=== PATIENT | male | born 1970 | race Caucasian/White ===

== ENCOUNTER 2020-12-26 08:46 | Emergency (ER) | payer MEDICAID, SELFPAY ==
--- NOTE | 2020-12-26 08:48 | CT_ITS ---
WS: [id number] CT CERVICAL TRAUMA TECHNIQUE: Noncontrast CT of the cervical spine with coronal and sagittal reformatted images. CLINICAL INFORMATION: trauma COMPARISON: None. DLP: 860.[address] scans at [facility] use at least one of these dose optimization techniques: automated e xposure control; mA and/or kV adjustment per patient size (includes targeted exams where dose is matc hed to clinical indication); or iterative reconstruction. FINDINGS: Straightening of the normal cervical lordosis. Mild spondylitic changes. Anterior hypertrophic change s at C5-C6. Mild disc bulging C5-C6 and C6-C7. Mild central canal stenosis C6-7 with a broad-based ce ntral protrusion. Normal craniocervical junction. Normal C1-C2 articulation. Dens is normal in appear ance. Normal occipital condyles. Normal C1 ring. No evidence of acute fracture or dislocation. Normal prevertebral soft tissues. Mastoids air cells are well aerated. CT/CT cervical spin wo con* [id number] IMPRESSION: No evidence of acute fracture or dislocation.
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
[2020-12-26] MEDS: iohexol 300 mg/mL 100 mL Btl IV (08:59)
[2020-12-26 09:18] VITALS: BP 156/99; PULSE 90; RESP 19; TEMP 36.7; O2SAT 97; BMI 27.0
[2020-12-26 09:21] LABS: Basophils # 0.1 10^3/uL (0.0-0.1); Basophils % 1.1 %; Eosinophils # 0.2 10^3/uL (0.0-0.8); Eosinophils % 4.7 %; Hematocrit 39.8 % (42.0-52.0); Hemoglobin 14.1 g/dL (11.7-16.6); Lymphocytes # 1.1 10^3/uL (0.8-4.8); Lymphocytes % 24.9 %; Mean Corpuscular HGB Conc 35.4 g/dL (30.0-36.0); Mean Corpuscular Hemoglobin 31.3 pg (28.0-34.0); Mean Corpuscular Volume 88.2 fl (80-94); Mean Platelet Volume 10.2 fL (7.4-10.4); Monocytes # 0.4 10^3/uL (0.2-0.9); Monocytes % 8.5 %; Neutrophils # 2.67 10^3/uL (1.8-7.7); Neutrophils % 60.1 %; Nucleated Red Blood Cells % 0 %; Platelet Count 223 10^3/cmm (130-400); Red Blood Count 4.51 10^6/uL (4.1-5.3); Red Cell Distribution Width 11.5 % (12.1-15.1); White Blood Count 4.5 10^3/uL (4.0-10.0)
[2020-12-26 09:39] LABS: Alanine Aminotransferase 19 U/L (0-41); Albumin Level 3.8 g/dL (3.5-5.2); Alkaline Phosphatase 69 IU/L (40-130); Anion Gap 13.5 (5-19); Aspartate Amino Transferase 15 U/L (0-40); Blood Urea Nitrogen 13 mg/dL (6-20); Calcium 7.8 mg/dL (8.5-10.5); Carbon Dioxide 22 mmol/L (22-29); Chloride 104 mmol/L (98-107); Globulin 1.9 g/dL (1.3-4.6); Glomerular Filtration Rate 89.7 mL/min (90-130); Glucose 114 mg/dL (65-115); Osmolality Calculated 283 mOsm/kg (285-295); Potassium 3.5 mmol/L (3.5-5.1); Sodium 136 mmol/L (136-145); Total Bilirubin 0.4 mg/dL (0.15-1.2); Total Protein 5.7 g/dL (6.6-8.7)
[2020-12-26 09:44] VITALS: BP 166/109; PULSE 85; O2SAT 97
[2020-12-26 09:57] LABS: Add Urine Microscopic? NO; Charge for UA Resulting for Rev
[2020-12-26 10:11] LABS: Bilirubin Urine Neg (Negative); Blood Urine Neg (Negative); Glucose Urine UA Norm (Normal); Ketones Urine Negative (Negative); Leukocyte Esterase Urine Negative (Negative); Nitrate Urine Negative (Negative); Protein Urine Neg (Negative); Urine Appearance Clear (CLEAR); Urine Color Yellow (Yellow); Urobilinogen Urine Norm (Negative); pH Urine 5 (5-7)
[2020-12-26 10:12] VITALS: BP 151/94; PULSE 80; RESP 18; O2SAT 96
[2020-12-26] MEDS: sodium chloride 0.9% 1,000 ML 999 ML IV (10:12)
[2020-12-26] MEDS: ketorolac 30 mg/mL INJ IVP (10:12)
[2020-12-26 11:09] VITALS: BP 155/99; PULSE 77; RESP 14; O2SAT 97
[2020-12-26] MEDS: tetracaine 0.5% Op Soln 4 mL Btl 1 DROP EYE-BOTH (11:20)
[2020-12-26] MEDS: fluorescein 1 mg Strip EYE-BOTH (11:20)
[2020-12-26] MEDS: HYDROcodone-acetaminophen 5-325 mg Tablet 2 TAB PO (11:45)
== END 2020-12-26 11:47 | disposition home or self-care (01) ==
PROVIDERS: Emergency Provider Family Medicine; PCP Internal Medicine
DX: S00.83XA Contusion of other part of head, initial encounter (principal); V89.2XXA Person injured in unspecified motor-vehicle accident, traffic, initial encounter
CPT/HCPCS: 70450; 71260; 72125; 74177; 80053; 81003; 85025; 96361; 96374; 99283; J1885; J7030; Q9967

== ENCOUNTER → 2022-01-13 16:20 | Outpatient (BNVA) | payer MEDICAID, SELFPAY | PROVIDERS: PCP Family Medicine; Visit Provider Family Medicine | DX: I10 Essential (primary) hypertension (principal) | CPT/HCPCS: 80053; 80061; 83721; 84153; 84443; 85025; 86803; 87806 ==

== ENCOUNTER → 2022-08-29 10:49 | Outpatient (BNVA) | payer MEDICAID, SELFPAY | PROVIDERS: PCP Family Medicine; Referring Provider Family Medicine; Visit Provider Nurse Practitioner Family | DX: M16.11 Unilateral primary osteoarthritis, right hip (principal) | CPT/HCPCS: 73502 ==

== ENCOUNTER 2023-07-07 15:10 | Emergency (ER) | payer OTHER, SELFPAY ==
[2023-07-07 15:19] VITALS: BP 191/91; PULSE 84; RESP 16; TEMP 36.5; O2SAT 97; BMI 28.8
--- NOTE | 2023-07-07 16:03 | XRR_ITS ---
PROCEDURE INFORMATION: Exam: XR Left Hand Exam date and time: 07/07/2023 4:09 PM Age: 53 years old Clinical indication: Injury or trauma; Other: Smashed between 2 objects at work; Work related; Blunt trauma (contusions or hematomas); Injury details: PT presents with left hand injury. Patient states hand was smashed between two objects at work. Patient states that he cannot move pinky finger. Patient has small laceration to top of hand. Patient last tetnus shot within the last 2 years. Patent airway, unlabored respirations, and appropriate color. TECHNIQUE: Imaging protocol: Radiologic exam of the left hand. Views: 3 or more views. COMPARISON: No relevant prior studies available. FINDINGS: Bones/joints: Acute displaced fracture of the proximal phalanx small finger. No gross evidence of intra-articular step-off. Chronic appearing 1 cm ossicle adjacent to the distal pole of the scaphoid. Correlation with point tenderness and CT may be helpful for further detail if there is concern for acute trauma in this region. Radiocarpal articulation and carpal rows are otherwise grossly intact. Soft tissues: Soft tissue edema/laceration of the ulnar aspect of the hand in the region of the small finger/4th webspace raising the question of open fracture. XR/XR hand LT min 3V* [id number] IMPRESSION: 1. Acute displaced fracture of the proximal phalanx small finger, possibly open. 2. Chronic appearing 1 cm ossicle adjacent to the distal pole of the scaphoid. Correlation with point tenderness and CT may be helpful for further detail if there is concern for acute trauma in this region.
--- NOTE | 2023-07-07 16:20 | ED_ITS ---
HPI - Extremity Injury (Upper) General: Chief Complaint: Extremity Injury, Upper Stated Complaint: smashed left hand Time Seen by Provider: 07/07/23 16:17 Source: patient Mode of arrival: ambulatory Limitations: no limitations History of Present Illness: Patient is a 53-year-old male presents to ED today for evaluation of left hand injury that he sustained just prior to arrival while at work and the hand got smashed between some metal component of a tractor bucket. Patient's tetanus is up-to-date. His main complaint is pain to the left fifth finger. MD complaint: injury to: left, hand and finger Onset (ago): hour(s) Other Extremity Injury: Left: hand Other injuries: none Place: home Severity: moderate Relieving factors: none Exacerbating factors: movement of extremity Context: direct blow and crush Associated symptoms: Reports no associated symptoms Review of Systems Musc: Reports: extremity pain (L hand) Skin/Breast: Reports: other (abrasions dorsal L hand) Neuro: Denies: numbness in extremities or sensory changes PFSH ED PFSH: Family History Father Hypertension Mother CAD (coronary artery disease) Social History Smoking and tobacco/nicotine status: never used tobacco/nicotine Second hand smoke exposure: No Alcohol intake: current Alcohol intake frequency: few times a week Substance/Drug Use: never Adopted: No Caregiver/support person: No Lives independently: No Household members: spouse Marital status: Life Partner Number of children: 6 service: Yes Current occupational status: employed Current occupational exposures/hazards: No Do you think of yourself as: Straight/Heterosexual Current gender identity: Male Physical Exam Const: COMMON NORMALS: no acute distress, average body habitus, no limitations, healthy appearing, alert and well nourished GENERAL APPEARANCE: cooperative ORIENTATION/CONSCIOUSNESS: Yes awake, Yes oriented to person, Yes oriented to place and Yes oriented to time Extremity: COMMON NORMALS: capillary refill normal GENERAL: Yes normal exam except as noted LEFT UPPER EXTREMITY: Yes hand & digits (abrasions dorsal L 4-5 CMP regions; one small flap not amendable to repair) Left hand and digits: Yes palpation (TTP L 5th finger) and Yes neurovascular exam (normal) Neuro: COMMON NORMALS: moves all extremities, no focal motor deficits and no sensory deficits noted SENSORIUM/ORIENTATION: Yes alert, Yes oriented to person, Yes oriented to place and Yes oriented to time Course Vital Signs: Vital signs: Vital Signs Temperature 97.7 F 07/07/23 15:19 Pulse Rate 84 07/07/23 15:19 Respiratory Rate 16 07/07/23 15:19 Blood Pressure 191/91 07/07/23 15:19 Pulse Oximetry 97 07/07/23 15:19 Oxygen Delivery Me thod Room Air 07/07/23 15:19 MDM - Extremity Injury (Upper) Medical Decision Making Patient has a fracture of his fifth proximal phalanx. Abrasions to the dorsum of his hand were copiously irrigated and dressed. Finger will be splinted. His tetanus is up-to-date. Will go ahead and place him on prophylactic antibiotics and give him pain medications. He will follow-up with orthopedics. Medical Records I reviewed the patient's medical records. XR interpretation done by ED provider, pending radiology final review Discharge Plan Discharge Patient Disposition: Home Clinical Impression: Closed fracture of proximal phalanx of little finger Qualifiers: Encounter type: initial encounter Fracture alignment: nondisplaced Laterality: left Qualified Code(s): S62.647A - Nondisplaced fracture of proximal phalanx of left little finger, initial encounter for closed fracture Condition: Stable Prescriptions: New hydrocodone-acetaminophen 5-325 mg tablet 1 tab PO Q6H PRN (Reason: pain) Qty: 14 0RF cephalexin 500 mg capsule 500 mg PO Q6H 7 Days Qty: 28 0RF No Action diazepam 10 mg tablet 10 mg PO BID PRN (Reason: anxiety) Qty: 2 0RF amlodipine 10 mg tablet 10 mg PO DAILY Qty: 90 3RF atorvastatin 40 mg tablet 40 mg PO DAILY Qty: 90 3RF lisinopril 40 mg tablet 40 mg PO DAILY Qty: 90 3RF zolpidem [Ambien] 10 mg tablet 10 mg PO .at bedtime Qty: 30 5RF melatonin 10 mg Tablet 80 mg PO BEDTIME diclofenac sodium 75 mg tablet,delayed release (DR/EC) 75 mg PO Q12H PRN (Reason: pain) Qty: 20 0RF tizanidine 4 mg capsule 4 mg PO Q6H PRN (Reason: muscle spasticity) Qty: 20 0RF Discharge Orders: Discharge ED (Routine); Ordered 07/07/23 Ordered By: Manjula Bethea Referrals: Eagle Castellanos DO [Primary Care Provider] - Patient Instructions: Fractures - Phalanx (Finger), Finger Fracture (ED), Opioid Safety, Pain Management Activity Restrictions/Additional Instructions: As we discussed keep your abrasions clean with warm soapy water and monitor for signs of infection such as redness, increased swelling, purulent drainage, streaking up your hand or arm. Please seek medical reevaluation if these occur. You need to stay in your splint until you follow-up with orthopedics. Please fill your antibiotics and pain medications today and start your antibiotics immediately. Your pain medications you may use sparingly for severe pain. Case management should reach out to you shortly to help set you up with your follow- up orthopedic appointment. Coding Level of Care Code ED Power Line Installer And Repairer for Bentley Joyce
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
== END 2023-07-07 17:05 | disposition home or self-care (01) ==
PROVIDERS: Emergency Provider Physician Assistant; PCP Family Medicine
DX: S62.647A Nondisplaced fracture of proximal phalanx of left little finger, initial encounter for closed fracture (principal); W30.89XA Contact with other specified agricultural machinery, initial encounter
CPT/HCPCS: 73130; 99283

== ENCOUNTER → 2023-07-10 13:04 | Outpatient (BNVA) | payer OTHER, SELFPAY | PROVIDERS: PCP Family Medicine; Visit Provider Student in an Organized Health Care Education/Training Program | DX: S62.647A Nondisplaced fracture of proximal phalanx of left little finger, initial encounter for closed fracture (principal); W23.0XXA Caught, crushed, jammed, or pinched between moving objects, initial encounter | CPT/HCPCS: 73130 ==

== ENCOUNTER 2023-07-16 09:40 | Day surgery (SDC) | payer OTHER, SELFPAY ==
[2023-07-16] VITALS (9 sets, daily range): BP systolic 129–152; BP diastolic 76–88; PULSE 75–98; RESP 12–22; TEMP 36.6–37.5; O2SAT 95–98; BMI 28.8
[2023-07-16] MEDS: acetaminophen 1,000 MG/100 ML PIGGYBACK 400 MG IV (10:19)
[2023-07-16] MEDS: sodium chloride 0.9% 1,000 ML 30 ML IV (10:19)
[2023-07-16] MEDS: ketorolac 30 mg/mL INJ IVP (10:19)
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
--- NOTE | 2023-07-16 12:53 | W.PM.OPSUD ---
Surgery/Procedure H&P Update DATE OF PROCEDURE: July 16, 2023 DATE H&P PERFORMED: 07/10/23 H&P UPDATE INFORMATION: I have reviewed H&P completed within last 30 days, I have examined patient prior to procedure and No changes to prior documentation PREOP DIAGNOSIS: Left small finger proximal phalanx fracture PRIMARY INDICATION FOR PROCEDURE: Left small finger proximal phalanx fracture PLANNED PROCEDURE: Operation Date: 07/16/23 11:20 Proposed Procedures p Left small finger proximal phalanx closed reduction percutaneous pinning versus open reduction internal fixation 58035(Left) - Wallace Maravilla DO
[2023-07-16] MEDS: ceFAZolin 2,000 MG in sodium chloride 0.9% (plus) 50 ML 100 MG IV (12:59)
[2023-07-16] MEDS: lidocaine 2% INJ 20 mL INJECTION (13:42)
[2023-07-16] MEDS: ROPivacaine 0.5% SDV 30 mL 150 MG INJECTION (13:42)
--- NOTE | 2023-07-16 14:03 | P.BOP_ITS ---
Date of Procedure: [07/16/2023] Surgeon: Wallace Maravilla DO Cold Strip Feeder(s): JUAN Max Procedure(s) performed: . Left small finger closed reduction percutaneous pinning proximal phalanx fracture Left small finger I&D (2 cm x 1 cm x 0.25 cm Findings of the procedure(s): Patient found to have left small finger oblique fracture at the proximal phalanx. Patient did have a crush injury more proximal to the MP joint this had poor tissue edges and as a result just to make sure there was no communication of the fracture site I went ahead and opened this up there did not appear to be any joint involvement or communication to the fracture site but I went ahead and performed a thorough I&D of the small wound area over the dorsal aspect of the MP joint did not appear to have any communication with the fracture site as result ID performed and then subsequently closed reduced and pinned to the left small finger under x-ray guidance. Just for infection prophylaxis will place patient postoperatively on antibiotics as well as his pain control be placed in an ulnar gutter and follow- up in 2 weeks. Estimated blood loss: 5 mL Specimen(s) removed: None Post-operative diagnosis: Left small finger proximal phalanx fracture and dorsal hand laceration
--- NOTE | 2023-07-16 14:05 | P.OP_ITS ---
Operative Report Date of procedure: July 16, 2023 Pre-op diagnosis: Left small finger proximal fracture, Left dorsal hand abrasion Post-op diagnosis: Same Procedure done: Left small finger closed reduction percutaneous pinning proximal phalanx fracture Left small finger I&D (2 cm x 1 cm x 0.25 cm) Implants: 2 x 0.45 K wire Surgeon: Wallace Maravilla DO Anesthesia: MAC and Local Estimated blood loss: 5mL 43min IV fluids: 850mL Complications: none Findings: See operative report narrative Condition: stable Disposition: same day Brief History: Patient was seen and examined in the outpatient setting after sustaining a fracture of the left small finger proximal phalanx. There was also an abrasion over the dorsal aspect of the hand. Did not appear to have any communication with the joint patient been on antibiotics. We talked about treatment options nonoperative intervention. Given there was subtle rotational deformity as well as shortening and fracture displacement we talked about treatment options for his nonoperative and operative invention. At this point in time patient elects proceed with surgical intervention. Understands ins and outs procedure risk benefits complication alternatives of surgery and through shared decision-making proceed with surgical intervention. All questions answered at this time. Procedure: Patient was seen evaluate in the preoperative holding area. Consent was reviewed and signed with patient. Correct extremity was then subsequently marked. Patient was then seen evaluated by anesthesia was cleared for surgery was taken back to the operative suite patient was then kept on [facility] armboard applied to left upper extremity. Patient a nonsterile tourniquet applied to the left upper arm underwent anesthesia per the anesthesia department appropriate anesthetized nonsterile tourniquet applied left upper arm and the left upper extremities then prepped and draped standard orthopedic fashion. Final timeout performed. Patient received appropriate preoperative antibiotics. Esmarch tourniquet was used exsanguinate the left upper extremity tourniquet was insufflated to 250 mmHg. I inspected patient's previous dorsal abrasion this was a small skin flap with devitalized tissue anteriorly irrigated this area as well as inspected it this w ent into the subcutaneous tissue but did not communicate to the fracture site. At this point in time I ellipsed the necrotic skin at this area as well as debridement of subcutaneous tissue this total wound measured 2 cm x 1 cm x 0.25cm in size and this was debrided of skin and subcutaneous tissue. Thorough irrigation was performed at this and then moved to my inspection of the small finger. I utilized fluoroscopic imaging to evaluate the proximal phalanx fracture site I tried to do multiple bouts of manipulation of this but was unable to achieve a satisfactory reduction this point in time I did utilize a [place] through the fracture site in order to disengage this as well as utilize traction once this was performed I was able to achieve satisfactory reduction as well as had good alignment once this was done I then placed 2 K wire pins 0.25 and perpendicular fashion across the fracture site to hold the reduction. I attempted to try 1 more fracture to create a crosspin configuration but given the oblique nature this was achievable and subsequently was satisfied after taking the finger through range of motion with the 2 K wires perpendicular across the fracture site. This was satisfactory reduction up subsequently tourniquet was deflated hemostasis was satisfactory thorough irrigation performed I then subsequently bent cut and capped of the K wire pins. The wound was then thoroughly irrigated once more and then closed in standard interrupted nylon suture fashion of the placed Ambrose balls around the pain and then subsequently closed the incision with interrupted nylon suture. These were then well-padded and then subsequently an ulnar gutter splint applied with Xeroform around the pin sites 4 x 4's Curlex and an ulnar gutter splint applied. Patient tolerated procedure Issues taken back in stable condition. Disposition: Patient taken back to state condition recovering well pain controlled. Will see appropriate discharge instructions pain medication postoperatively as well as will maintain splint until follow-up. Patient understands agrees. Questions answered.
[2023-07-16] MEDS: ondansetron 2 mg/ML SDV 2 mL 4 MG IVP (14:36)
--- NOTE | 2023-07-16 14:59 | SUR.PHASEII ---
Patient complained of itching in right forearm soon after admin of zofran in pacu. Patient noted to have quarter sized red raised area on forearm/ wrist and back side of forearm that he states itches. No other spots found. Patient states he is sensitive to many things and breaks out often. Will continue to monitor.
--- NOTE | 2023-07-16 15:02 | XR_ITS ---
WS: [id number] XR finger LT min 2V [id number] REASON FOR EXAM: LEFT SMALL FINGER PROXIMAL PHALANX CLOSED REDUCTION PERCUTAN FINDINGS: Internal fixation of oblique fracture to the base of the fifth proximal phalanx. Fracture fragments a re in good position and alignment. Surgical appliances are intact and in proper position. XR/XR finger LT min 2V [id number] IMPRESSION: Internal fixation of left fifth finger fracture without abnormality
[2023-07-16] MEDS: diphenhydrAMINE 50 mg/mL SDV 1mL 12.5 MG IVP (15:19)
--- NOTE | 2023-07-16 15:40 | ANE.PACU2 ---
Inpatient post-anesthesia follow up: Airway intact: Yes Vital signs: Temperature 97.9 F Pulse Rate 75 Respiratory Rate 17 Blood Pressure 137/76 Pulse Oximetry 98 Oxygen Delivery Me thod Room Air Oxygen Flow Rate Fraction of Inspir ed Oxygen Hydration adequate: Yes Nausea and vomiting: No Pain level: 1 Mental status: Baseline
== END 2023-07-16 15:40 | disposition home or self-care (01) ==
PROVIDERS: PCP Family Medicine; Visit Provider Student in an Organized Health Care Education/Training Program
PROC: (CPT 11042; principal; 2023-07-16 11:20)
DX: S62.617A Displaced fracture of proximal phalanx of left little finger, initial encounter for closed fracture (principal); S60.512A Abrasion of left hand, initial encounter; W23.0XXA Caught, crushed, jammed, or pinched between moving objects, initial encounter; Y99.0 Civilian activity done for income or pay; I10 Essential (primary) hypertension
CPT/HCPCS: 11042; 26727; 73140; 76000; C1713; J0131; J0690; J1100; J1200; J1885; J2371; J2405; J2704; J2795; J3010; J3490; J7030

== ENCOUNTER 2023-07-30 06:00 | Outpatient (CLI) | payer MEDICAID, SELFPAY | END 2023-07-30 06:01 | disposition home or self-care (01) | LOC: SOT 08-03 09:27 | PROVIDERS: PCP Family Medicine; Visit Provider Student in an Organized Health Care Education/Training Program | DX: Z46.89 Encounter for fitting and adjustment of other specified devices (principal); S62.647D Nondisplaced fracture of proximal phalanx of left little finger, subsequent encounter for fracture with routine healing; X58.XXXD Exposure to other specified factors, subsequent encounter | CPT/HCPCS: 97760; L3808 ==

== ENCOUNTER → 2023-07-30 12:54 | Outpatient (BNVA) | payer OTHER, SELFPAY | PROVIDERS: PCP Family Medicine; Visit Provider Student in an Organized Health Care Education/Training Program | DX: S62.647D Nondisplaced fracture of proximal phalanx of left little finger, subsequent encounter for fracture with routine healing; X58.XXXD Exposure to other specified factors, subsequent encounter | CPT/HCPCS: 73130 ==

== ENCOUNTER → 2023-08-27 14:15 | Outpatient (BNVA) | payer MEDICAID, SELFPAY | PROVIDERS: PCP Family Medicine; Visit Provider Student in an Organized Health Care Education/Training Program | DX: S62.647A Nondisplaced fracture of proximal phalanx of left little finger, initial encounter for closed fracture (principal); X58.XXXA Exposure to other specified factors, initial encounter | CPT/HCPCS: 73130 ==

== ENCOUNTER 2023-08-27 15:41 | Outpatient (RCR) | payer OTHER, SELFPAY | END 2023-09-09 23:59 | disposition home or self-care (01) | LOC: SOT 15:41 | PROVIDERS: PCP Family Medicine; Visit Provider Student in an Organized Health Care Education/Training Program | DX: Z47.89 Encounter for other orthopedic aftercare (principal) | CPT/HCPCS: 97022; 97110; 97140; 97166; 97530 ==

== ENCOUNTER 2023-09-10 06:00 | Outpatient (RCR) | payer OTHER, SELFPAY | END 2023-10-10 18:00 | disposition home or self-care (01) | LOC: SOT 06:00 | PROVIDERS: PCP Family Medicine; Visit Provider Student in an Organized Health Care Education/Training Program | DX: Z47.89 Encounter for other orthopedic aftercare (principal) | CPT/HCPCS: 97022; 97110; 97140 ==

== ENCOUNTER → 2023-10-06 09:22 | Outpatient (BNVA) | payer OTHER, SELFPAY | PROVIDERS: PCP Family Medicine; Visit Provider Physician Assistant | DX: Z98.890 Other specified postprocedural states | CPT/HCPCS: 73130 ==

== ENCOUNTER 2023-10-06 10:41 | Outpatient (CLI) | payer OTHER, SELFPAY | END 2023-10-06 10:42 | disposition home or self-care (01) | LOC: SPT 10:41 | PROVIDERS: PCP Family Medicine; Visit Provider Physician Assistant | DX: Z47.89 Encounter for other orthopedic aftercare (principal) | CPT/HCPCS: 97760; L3807 ==

== ENCOUNTER 2023-12-03 18:46 | Emergency (ER) | payer MEDICAID, SELFPAY ==
[2023-12-03 19:00] VITALS: BP 140/87; PULSE 87; RESP 16; TEMP 36.5; O2SAT 95
[2023-12-03] MEDS: dexamethasone 10 mg/mL INJ IM (19:39)
--- NOTE | 2023-12-03 20:40 | W.ED.ALLEREA ---
HPI - Allergic Reaction General: Chief complaint: Allergic Reaction Stated complaint: insect sting abd swelling Time Seen by Provider: 12/03/23 19:27 History of Present Illness: HPI narrative: Patient had a wasp sting yesterday on his abdomen. Today he has developed a large red indurated area across his abdomen. Has taken some Benadryl. No systemic symptoms. No shortness of breath. No chest pain. No feeling of throat closing Related Data Previous Rx's Medication Instructions Recorded Custom Ulnar Gutter Splint #1 ea 07/30/23 cephalexin 500 mg capsule 500 mg PO QID 7 days #28 caps 08/30/23 left tko brace #1 ea 10/06/23 amlodipine 10 mg tablet 10 mg PO DAILY #90 tabs 11/27/23 atorvastatin 40 mg tablet 40 mg PO DAILY #90 tabs 11/27/23 diclofenac sodium 75 mg 75 mg PO Q12H PRN pain #20 tabs 11/27/23 tablet,delayed release lisinopril 40 mg tablet 40 mg PO DAILY #90 tabs 11/27/23 zolpidem 10 mg tablet 10 mg PO .at bedtime PRN insomnia 11/30/23 #90 tabs prednisone 20 mg tablet 60 mg (3 x 20 mg) PO DAILY #20 tabs 12/03/23 Allergies Allergy/AdvReac Type Severity Reaction Status Date / Time No Known Allergies Allergy Verified 12/03/23 19:03 Review of Systems Narrative: Constitutional symptoms: Negative except as documented in HPI. Skin symptoms: Negative except as documented in HPI. Eye symptoms: Negative except as documented in HPI. ENMT symptoms: Negative except as documented in HPI. Respiratory symptoms: Negative except as documented in HPI. Cardiovascular symptoms: Negative except as documented in HPI. Gastrointestinal symptoms: Negative except as documented in HPI. Genitourinary symptoms: Negative except as documented in HPI. Musculoskeletal symptoms: Negative except as documented in HPI. Neurologic symptoms: Negative except as documented in HPI. Psychiatric symptoms: Negative except as documented in HPI. Endocrine symptoms: Negative except as documented in HPI. PFSH ED PFSH: Family History Father Hypertension Mother CAD (coronary artery disease) Social History Smoking and tobacco/nicotine status: former use of tobacco/nicotine Second hand smoke exposure: No Alcohol intake: current Alcohol intake frequency: few times a week Substance/Drug Use: never Adopted: No Caregiver/support person: No Lives independently: No Household members: spouse Marital status: Life Partner Number of children: 6 service: Yes Current occupational status: employed Current occupational exposures/hazards: No Do you think of yourself as: Straight/Heterosexual Current gender identity: Male Physical Exam Narrative: EXAM NARRATIVE: General: Alert, no acute distress. Skin: warm and dry. Large red indurated area across the whole of the lower abdomen. Head: Normocephalic Neck: Trachea midline Eye: Extraocular movements are intact. Ears, nose, mouth and throat: Oral mucosa moist Respiratory: Respirations are non-labored Musculoskeletal: Normal ROM Neurological: Alert and oriented, No focal neurological deficit observed. Psychiatric: Cooperative, appropriate mood & affect. Course Vital Signs: Vital signs: Vital Signs Temperature 97.7 F 12/03/23 19:00 Pulse Rate 79 12/03/23 20:51 Respiratory Rate 16 12/03/23 20:51 Blood Pressure 144/84 12/03/23 20:51 Pulse Oximetry 94 12/03/23 20:51 Oxygen Delivery Me thod Room Air 12/03/23 19:00 MDM - Allergic Reaction Medical Decision Making Assessment and plan: Insect sting ?Steroid shot here and p.o. steroids at home - Discharged home - Discussed plan with patient. Answered any questions. - Evaluation and treatment of this problem were appropriate in the emergency setting. No radiology studies performed this visit Discharge Plan Discharge Patient Disposition: Home Clinical Impression: Local reaction to insect sting Condition: Stable Prescriptions: New prednisone 20 mg tablet 60 mg PO DAILY Qty: 20 0RF Rx Instructions: 3 tabs (60 mg) x 3 days. 2 tabs (40 mg) x 3 days. 1 tab (20 mg) x 3 days. 1/2 tab (10 mg) x 4 days No Action (DME) left tko brace See Rx Instructions .Route .MEDSUPPLY Qty: 1 0RF Rx Instructions: As directed (DME) Custom Ulnar Gutter Splint See Rx Instructions .Route .MEDSUPPLY Qty: 1 0RF Rx Instructions: As directed cephalexin 500 mg capsule 500 mg PO QID 7 Days Qty: 28 0RF amlodipine 10 mg tablet 10 mg PO DAILY Qty: 90 3RF atorvastatin 40 mg tablet 40 mg PO DAILY Qty: 90 3RF lisinopril 40 mg tablet 40 mg PO DAILY Qty: 90 3RF diclofenac sodium 75 mg tablet,delayed release (DR/EC) 75 mg PO Q12H PRN (Reason: pain) Qty: 20 0RF zolpidem 10 mg tablet 10 mg PO .at bedtime PRN (Reason: insomnia) Qty: 90 1RF Discharge Orders: Discharge ED (Routine); Ordered 12/03/23 Ordered By: Astrid Polanco Referrals: Eagle Castellanos DO [Primary Care Provider] - Patient Instructions: Insect Bite or Sting (ED) Activity Restrictions/Additional Instructions: Thank you for choosing [facility] for your healthcare needs today. Please realize this is an emergency room and that we are providing you with a medical screening exam and this may not be complete and all inclusive of all the testing and or work up that you may need to determine your ailment or severity of your illness. You have been screened and evaluated and felt safe for discharge. Health conditions do change or evolve sometimes and as such it is important that you follow up with your Primary Doctor to be re checked, 3-5 days is a general good time frame for follow up. You are always welcome to return to the ED for re assessment if your symptoms are worsening or you have new concerns Coding Level of Care Code ED Global Chief Experience Officer for Bentley Joyce
[2023-12-03 20:51] VITALS: BP 144/84; PULSE 79; RESP 16; O2SAT 94
== END 2023-12-03 20:52 | disposition home or self-care (01) ==
PROVIDERS: Emergency Provider Emergency Medicine; PCP Family Medicine
DX: T63.461A Toxic effect of venom of wasps, accidental (unintentional), initial encounter (principal)
CPT/HCPCS: 96372; 99284; J1100

== ENCOUNTER → 2023-12-29 09:46 | Outpatient (BNVA) | payer OTHER, SELFPAY | PROVIDERS: PCP Family Medicine; Visit Provider Physician Assistant | DX: Z98.890 Other specified postprocedural states (principal) | CPT/HCPCS: 73130 ==

== ENCOUNTER 2024-06-23 09:39 | Emergency (ER) | payer OTHER, MEDICAID, SELFPAY ==
[2024-06-23 10:55] VITALS: BP 131/88; PULSE 87; RESP 18; TEMP 37.2; O2SAT 98; BMI 30.5
--- NOTE | 2024-06-23 11:29 | XR_ITS ---
WS: [id number] Exam: XR wrist RT 2V [id number] Date/Time of Exam: 06/23/2024 11:31 AM Reason For Exam: felt pop; wrist pain No fracture noted. The joint is preserved. Normal soft tissues. XR/XR wrist RT 2V [id number] IMPRESSION: 1. Negative RIGHT wrist.
--- NOTE | 2024-06-23 12:16 | ED_ITS ---
HPI - Extremity Problem General: Chief complaint: Extremity Injury, Upper Stated complaint: right wrist pain Time Seen by Provider: 06/23/24 12:10 Source: patient Mode of arrival: ambulatory Limitations: no limitations History of Present Illness: Patient was at work, using a shovel when the was doing something he felt his right wrist pop. Over only ulnar side. Now has pain with movement in that area especially against resistance. Pain is mild to moderate. It is okay at rest just hurts more with use. Related Data Previous Rx's ?Medication ?Instructions ?Recorded amlodipine 10 mg tablet 10 mg PO DAILY #90 tabs 11/09 10/02 atorvastatin 40 mg tablet 40 mg PO DAILY #90 tabs 11/09 10/02 diclofenac sodium 75 mg 75 mg PO Q12H PRN pain #20 t abs 11/27/23 tablet,delayed release lisinopril 40 mg tablet 40 mg PO DAILY #90 tabs 11/09 10/02 zolpidem 10 mg tablet 10 mg PO .at bedtime PRN ins omnia 01/18/24 #90 tabs Allergies Allergy/AdvReac Type Severity Reaction Status Date / Time No Known Allergies Allergy Verified 01/18/24 15:41 Review of Systems General: Reports: 10 or more systems reviewed and unremarkable except in HPI and below PFSH ED PFSH: Family History Father Hypertension Mother CAD (coronary artery disease) Social History Smoking and tobacco/nicotine status: never used tobacco/nicotine Second hand smoke exposure: No Alcohol intake: current Alcohol intake frequency: few times a week Substance/Drug Use: never Adopted: No Caregiver/support person: No Lives independently: No Household members: spouse Marital status: Life Partner Number of children: 6 service: Yes Current occupational status: employed Current occupational exposures/hazards: No Do you think of yourself as: Straight/Heterosexual Current gender identity: Male Physical Exam Const: COMMON NORMALS: no acute distress, average body habitus, patient oriented x3, no limitations, healthy appearing and alert HENMT: COMMON NORMALS: normocephalic and atraumatic HEAD & SCALP: normocephalic and atraumatic Eye: COMMON NORMALS: Equal, round and reactive pupils present, EOMs intact bilaterally and conjunctivae normal CONJUNCTIVA: Yes conjunctivae normal PUPIL: Yes Equal, round and reactive pupils present Neck/C-Spine: COMMON NORMALS: full ROM Chest: CHEST: Yes Symmetrical chest wall rise Resp: COMMON NORMALS: normal respiratory effort and No retractions Cardio: COMMON NORMALS: regular rate, regular rhythm, S1 normal heart sound present and S2 normal heart sound present RATE: regular rate RHYTHM: regular rhythm HEART SOUNDS: S1 normal heart sound present and S2 normal heart sound present PERIPHERAL PULSES: radial pulses present Extremity: NARRATIVE EXTREMITY EXAM: Mild, wrist swelling on the ulnar side with some tenderness. Worse against resistance. No deformity no crepitus. Neurovascularly intact distal to injury. Neuro: COMMON NORMALS: patient oriented x3 SENSORIUM/ORIENTATION: Yes alert Course Vital Signs: Vital signs: Vital Signs Temperature 98.9 F 06/23/24 10:55 Pulse Rate 87 06/23/24 10:55 Respiratory Rate 18 06/23/24 10:55 Blood Pressure 131/88 06/23/24 10:55 Pulse Oximetry 98 06/23/24 10:55 MDM - Extremity (Nontraumatic) Medical Decision Making Right wrist examined, appears to be a sprain. X-ray personally reviewed and I see no acute abnormality, radiology read concludes this as well. Patient will be discharged with Velcro wrist splint. Advised to wear consistently for at least 1 week gradually come out of it and if pain returns to put back on. Follow-up with Ortho if not improving. Medical Records I reviewed the patient's medical records. Lab Data I reviewed the patient's lab results. Radiology Impressions Wrist X-Ray 06/23/24 11:29 IMPRESSION: 1. Negative RIGHT wrist. All radiology interpretation(s) finalized by discharge Discharge Plan Discharge Patient Disposition: Home Clinical Impression: Sprain and strain of right wrist Condition: Stable Prescriptions: No Action zolpidem 10 mg tablet 10 mg PO .at bedtime PRN (Reason: insomnia) Qty: 90 1RF amlodipine 10 mg tablet 10 mg PO DAILY Qty: 90 3RF atorvastatin 40 mg tablet 40 mg PO DAILY Qty: 90 3RF lisinopril 40 mg tablet 40 mg PO DAILY Qty: 90 3RF diclofenac sodium 75 mg tablet,delayed release (DR/EC) 75 mg PO Q12H PRN (Reason: pain) Qty: 20 0RF Discharge Orders: Discharge ED (Routine); Ordered 06/23/24 Ordered By: Elder Rockwell Referrals: Eagle Castellanos, [Primary Care Provider, Family Practice] Discharge Diet: Usual diet Discharge Activity: Limit activity as instructed Patient Instructions: Wrist Sprain (ED) Stand Alone Forms: Work/School Release Print Language: Kazakh Coding Level of Care Code ED Traveling Secretary for Bentley Joyce
== END 2024-06-23 12:43 | disposition home or self-care (01) ==
PROVIDERS: Emergency Provider Emergency Medicine; PCP Family Medicine
DX: S63.501A Unspecified sprain of right wrist, initial encounter (principal); X58.XXXA Exposure to other specified factors, initial encounter
CPT/HCPCS: 73100; 99283

== ENCOUNTER → 2025-01-18 07:30 | Outpatient (BNVA) | payer MEDICAID, SELFPAY | PROVIDERS: PCP Family Medicine; Visit Provider Family Medicine | DX: E55.9 Vitamin D deficiency, unspecified (principal); I10 Essential (primary) hypertension; E78.2 Mixed hyperlipidemia; F41.9 Anxiety disorder, unspecified; F32.A Depression, unspecified; Z12.5 Encounter for screening for malignant neoplasm of prostate; R79.89 Other specified abnormal findings of blood chemistry | CPT/HCPCS: 80053; 80061; 82306; 82607; 84443; 85025; G0103 ==